=== PATIENT | male | born 1980 | race Caucasian/White ===

== ENCOUNTER 2023-11-25 21:08 | Inpatient (IN) | payer OTHER ==
[~2023-11-25] VITALS: Ht 175.3 cm; Wt 75.0 kg
[2023-11-25 23:09] LABS: BASOPHILS % (AUTO) 0.3 % (0.0-2.0); HEMATOCRIT 40.2 % (41-53); HEMOGLOBIN 13.2 g/dL (13.5-17.5); LYMPHOCYTES # (AUTO) 1.5 K/uL (1.0-4.8); MEAN CORPUSCULAR HEMOGLOBIN 30.3 pg (26.0-34.0); MEAN CORPUSCULAR HGB CONC 32.9 G/dL (31.0-37.0); MEAN CORPUSCULAR VOLUME 92 fL (80-100); MONOCYTES # (AUTO) 0.6 K/uL (0.1-1.0); MONOCYTES % (AUTO) 6.4 % (2.0-9.0); NEUTROPHILS # (AUTO) 6.7 K/uL (1.8-7.7); NEUTROPHILS % (AUTO) 75.3 % (40.0-70.0); PLATELET COUNT (AUTO) 300 K/uL (150-450); RED BLOOD CELL COUNT(AUTO) 4.35 MIL/uL (4.50-5.90); RED CELL DISTRIBUTION WIDTH 13.8 % (11.5-14.5); WHITE BLOOD COUNT (AUTO) 8.9 K/uL (4.5-11.0)
[2023-11-25 23:23] LABS: ALCOHOL, BLOOD (SERUM) < 3 mg/dL (0-10)
[2023-11-25 23:31] LABS: ANION GAP 15 mmol/L (8-16); CALCIUM, TOTAL 9.1 mg/dL (8.8-10.5); CARBON DIOXIDE 24 mmol/L (22-29); CHLORIDE 99 mmol/L (98-107); CREATININE 1.22 mg/dL (0.60-1.30); GLOMERULAR FILTR. RATE CALC > 60 mL/min (>60); GLUCOSE,RANDOM 144 mg/dL (70-110); POTASSIUM 3.2 mmol/L (3.5-5.1); SODIUM SERUM 138 mmol/L (136-145); UREA NITROGEN, BLOOD 13 mg/dL (7-18)
[2023-11-26] MEDS ORDERED: BUPR-514 PO (00:19)
[2023-11-26] MEDS ORDERED: HYDR-4584 PO (00:19)
[2023-11-26] MEDS ORDERED: GABA-1181 PO (00:19)
[2023-11-26 00:37] LABS: COVID AG,FIA SOURCE NASAL SWAB
[2023-11-26 00:39] LABS: PH,URINE DRUG SCREEN 5.5 (5.0-8.0)
[2023-11-26 00:44] LABS: SARS-COV2 (COVID) ANTIGEN,FIA Negative (Negative)
[2023-11-26 00:52] LABS: ALCOHOL, URINE DRUG SCREEN NEGATIVE (NEGATIVE); AMPHET/METH SCREEN,URINE NEGATIVE (NEGATIVE); BARBITURATE SCREEN, URINE NEGATIVE (NEGATIVE); BENZODIAZEPINES SCREEN,URINE NEGATIVE (NEGATIVE); CANNABINOID SCREEN,URINE NEGATIVE (NEGATIVE); COCAINE SCREEN,URINE POSITIVE (NEGATIVE); METHADONE SCREEN, URINE NEGATIVE (NEGATIVE); OPIATE SCREEN,URINE NEGATIVE (NEGATIVE); PHENCYCLIDINE SCREEN,URINE NEGATIVE (NEGATIVE)
[2023-11-26] MEDS: LORazepam 2 MG/ML VIAL IM ONE (01:08)
[2023-11-26] MEDS: HALOPERIDOL LACTATE 5 MG/ML VIAL IM ONE (01:08)
[2023-11-26] MEDS: DiphenhydrAMINE HCL 50 MG/ML VIAL IM ONE (01:09)
[2023-11-26] MEDS: POTASSIUM CHLORIDE 20 MEQ ER TABLET PO ONE (01:48)
[2023-11-26] MEDS ORDERED: ZOLPIDEM TARTRATE 10 MG TABLET PO PRN (02:00)
[2023-11-26 02:55] VITALS: O2SAT 98
[2023-11-26 04:08] VITALS: BP 132/46; PULSE 72; RESP 17; TEMP 97.5; O2SAT 99
[2023-11-26] MEDS ORDERED: ALBUTEROL SULFATE HFA 90 MCG/PUFF 8 GM INHALER IH PRN (08:00)
[2023-11-26] MEDS ORDERED: MAG HYDROX/ALUMINUM HYD/SIMETH ES 30 ML SUSPENSION UDCUP PO PRN (08:00)
[2023-11-26] MEDS ORDERED: ONDANSETRON 4 MG TABLET PO PRN (08:00)
[2023-11-26] MEDS ORDERED: IBUPROFEN 400 MG TABLET PO PRN (08:00)
[2023-11-26] MEDS ORDERED: CloNIDine HCL 0.1 MG TABLET PO PRN (08:00)
[2023-11-26] MEDS ORDERED: PETROLATUM,WHITE 28 GM JELLY TP PRN (08:00)
[2023-11-26] MEDS ORDERED: DOCUSATE SODIUM 100 MG CAPSULE PO PRN (08:00)
[2023-11-26] MEDS ORDERED: NICOTINE 14 MG/24 HOUR PATCH TD PRN (08:00)
[2023-11-26] MEDS ORDERED: ACETAMINOPHEN 325 MG TABLET PO PRN (08:00)
[2023-11-26] MEDS ORDERED: GuaiFENesin/D-METHORPHAN [SUGAR-FREE] 200-20MG/10 ML SYRUP UDCUP PO PRN (08:00)
[2023-11-26] MEDS ORDERED: MAGNESIUM HYDROXIDE SUSPENSION 30 ML UDCUP PO PRN (08:00)
[2023-11-26] MEDS ORDERED: LOPERAMIDE HCL 2 MG CAPSULE PO PRN (08:00)
[2023-11-26] MEDS: GABAPENTIN 300 MG CAPSULE PO SCH (09:00)
[2023-11-26] MEDS: BuPROPion HCL XL 150 MG ER TABLET PO SCH (12:20)
[2023-11-26] MEDS: HALOPERIDOL 5 MG TABLET PO PRN (12:21)
[2023-11-26] MEDS: LORazepam 2 MG TABLET PO PRN (12:21)
[2023-11-26] MEDS: RisperiDONE 1 MG TABLET PO SCH (12:21)
[2023-11-26 12:46] VITALS: BP 110/70; PULSE 80; RESP 18; TEMP 98.4; O2SAT 100
[2023-11-26 20:20] VITALS: BP 108/64; PULSE 76; RESP 17; TEMP 98.2; O2SAT 99
[2023-11-27 07:59] LABS: BASOPHILS % (AUTO) 1.1 % (0.0-2.0); EOSINOPHILS % (AUTO) 6.5 % (1.0-6.0); HEMATOCRIT 38.9 % (41-53); HEMOGLOBIN 12.8 g/dL (13.5-17.5); LYMPHOCYTES # (AUTO) 2.2 K/uL (1.0-4.8); LYMPHOCYTES % (AUTO) 34.8 % (22.0-44.0); MEAN CORPUSCULAR HEMOGLOBIN 30.7 pg (26.0-34.0); MEAN CORPUSCULAR HGB CONC 32.9 G/dL (31.0-37.0); MEAN CORPUSCULAR VOLUME 93 fL (80-100); MONOCYTES # (AUTO) 0.5 K/uL (0.1-1.0); MONOCYTES % (AUTO) 7.4 % (2.0-9.0); NEUTROPHILS # (AUTO) 3.1 K/uL (1.8-7.7); NEUTROPHILS % (AUTO) 50.2 % (40.0-70.0); PLATELET COUNT (AUTO) 264 K/uL (150-450); RED BLOOD CELL COUNT(AUTO) 4.16 MIL/uL (4.50-5.90); RED CELL DISTRIBUTION WIDTH 13.9 % (11.5-14.5); WHITE BLOOD COUNT (AUTO) 6.3 K/uL (4.5-11.0)
[2023-11-27 08:25] LABS: ALANINE AMINOTRANSFERASE 19 U/L (12-78); ALBUMIN 3.3 g/dL (3.4-5.0); ALKALINE PHOSPHATASE 50 U/L (46-116); ANION GAP 10 mmol/L (8-16); ASPARTATE AMINOTRANSFERASE 21 U/L (15-37); BILIRUBIN,TOTAL 0.7 mg/dL (0.1-1.0); CALCIUM, TOTAL 9.1 mg/dL (8.8-10.5); CARBON DIOXIDE 28 mmol/L (22-29); CHLORIDE 107 mmol/L (98-107); CHOL/HDL RATIO 2.8 (4.2-7.3); CHOLESTEROL 117 mg/dL (131-200); FREE T4 (FREE THYROXINE) 0.84 ng/dL (0.76-1.46); GLOMERULAR FILTR. RATE CALC > 60 mL/min (>60); GLUCOSE,RANDOM 94 mg/dL (70-110); HDL CHOLESTEROL 42 mg/dL (40-60); LDL CHOL (CALC.) 66 mg/dL (0-130); POTASSIUM 3.8 mmol/L (3.5-5.1); SODIUM SERUM 145 mmol/L (136-145); THYROID STIMULATING HORMONE 0.72 uIU/mL (0.36-3.74); TOTAL PROTEIN, SERUM 6.5 g/dL (6.4-8.2); TRIGLYCERIDES 44 mg/dL (15-150); UREA NITROGEN, BLOOD 15 mg/dL (7-18)
[2023-11-27 08:27] VITALS: BP 104/67; PULSE 65; RESP 17; TEMP 97.5; O2SAT 96
[2023-11-27 08:38] LABS: HEMOGLOBIN A1C 5.5 % (3.8-5.6)
[2023-11-27 21:19] VITALS: BP 118/63; PULSE 78; RESP 18; TEMP 97.7; O2SAT 98
[2023-11-28 08:27] VITALS: BP 110/68; PULSE 70; RESP 17; TEMP 97.3; O2SAT 98
== END 2023-11-28 20:06 | disposition left against medical advice (07) | DRG 885 ==
LOC: EMS 21:12 → B3A 11-26 03:06
PROVIDERS: ADMIT Psychiatry & Neurology Psychiatry; ATTEND Psychiatry & Neurology Psychiatry
PROC: GZHZZZZ Group Psychotherapy (ICD-10-PCS; principal; 2023-11-27)
DX: F25.1 Schizoaffective disorder, depressive type (principal); D64.9 Anemia, unspecified; E87.6 Hypokalemia; F14.90 Cocaine use, unspecified, uncomplicated; F32.A Depression, unspecified; Z20.822 Contact with and (suspected) exposure to COVID-19; F19.10 Other psychoactive substance abuse, uncomplicated; M54.30 Sciatica, unspecified side; F17.210 Nicotine dependence, cigarettes, uncomplicated; Z53.29 Procedure and treatment not carried out because of patient's decision for other reasons
CPT/HCPCS: 80048; 80053; 80061; 80307; 83036; 84439; 84443; 85025; G0480; J1200; J1630; J2060